=== PATIENT | female | born 2000 | race Caucasian/White ===

== ENCOUNTER 2024-09-25 11:01 | Emergency (ER) | payer OTHER, SELFPAY ==
--- NOTE | ~2024-09-25 | XR_ITS ---
CHEST RADIOGRAPH, PA AND LATERAL CLINICAL HISTORY: cp . COMPARISON: None available TECHNIQUE: PA and lateral views of the chest. FINDINGS The cardiomediastinal silhouette is unremarkable. The lungs are clear. Visualized osseous structures and soft tissues are unremarkable. IMPRESSION: No focal infiltrate or effusion. Reviewed, dictated and finalized at location A.
--- OUTSIDE RECORDS SUMMARY | 2024-09-25 11:04 | XMS_ITS | Encounter Summary ---
Author Organization [facility] Address [address] [place] [address] Encounters * Online digital evaluation and management service, for an established patient, for up to 7 days cumulative time during the 7 days, 11-20 minutes with Delia Calderón at [facility] on [id number] with dysuria, urgency and blood in urine x 1 day, treated for UTI with Macrobid We evaluated Zoe Knott for UTI Treatment [Female] during this period from 2024-03-18 to 2024-03-25.A log history of our dialog is attached below. PHR was confirmed per below. 1. Other specified bacterial agents as the cause of diseases classified elsewhere (B96.89) 2. Urinary Tract Infection (N39.0) nitrofurantoin monohydrate/macrocrystals 100 mg capsule ACUTE CARE PLAN SOAP NOTE SUBJECTIVE: Patient presenting with dysuria, urgency and blood in urine x 1 day OBJECTIVE: Discussed symptoms with patient on the phone consistent with Urinary Tract Infection I have reviewed and updated the problem and medication list and assessed the patient's pertinent positives and negatives as outlined in the intake titled UTI on 03/18/24 ASSESSMENT & PLAN: Clinical picture indicative of this diagnosis: Urinary Tract Infection Plan: 1. Start Macrobid 100 mg BID for 5 days 2. Increase fluid intake Follow-up interval and reason/type: 6 days Written by Delia Calderón on 2024-03-18
--- OUTSIDE RECORDS SUMMARY | 2024-09-25 11:04 | XMS_ITS | Clinical Summary ---
Author Organization [facility] Address [facility] [place] [address] Care Team Providers Care Vehicle Operator Technician Name Role Phone Elisa Ferrer MD Primary Care Provide r Allergies No known active allergies Medications acetaminophen (TYLENOL) 325 mg tablet Take 2 tablets (650 mg total) by mouth every 6 (six) hours as needed for pain 0 Active Additional Information Patient not taking.Reported on 01/12/2020 ibuprofen (ADVIL,MOTRIN) 600 mg tablet Take 1 tablet (600 mg total) by mouth every 6 (six) hours as needed for pain 0 Active etonogestreL (Nexplanon) 68 mg implant Inject 68 mg under the skin as directed Active Active Problems Problem Noted Date Diagnosed Date 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 CT abdomen in ED showed normal appendix and ovaries, which rules out appendicitis and ovarian pathologies. 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 Intraperitoneal fat infarct is typically a self-limiting condition, which is managed conservatively. CT also reported narrowing of the celiac artery, which can also present with abdominal pain, though pain is typically post-prandial which is not consistent with pt's presentation. Abdominal pain may also be a symptom of COVID-19 though less than 10% of COVID patients develop abdominal pain. We will optimize pain management and continue to monitor Zoe's symptoms. - Scheduled Tylenol q6h - Scheduled Toradol q6h - For breakthrough pain, morphine 2 mg q4h PRN COVID-19 virus infection 12/02/2019 Assessment & Plan (12/02/2019 10:05 PM CDT): Patient is COVID-19 positive. Currently symptoms include loss of taste and smell and some dizziness. Will continue to monitor for any additional symptoms and take appropriate isolation precautions. - COVID-19 precautions Medical History Medical History Date Comments PCOS (polycystic ovarian syndrome) Family History Medical History Relation Name Comments Hypertension Father Family history of hypertension - (Added by TW Conv) Hypertension Mother Diabetes type II Other Family hist ory of type 2 diabetes mellitus - Relation: Aunt (Added by TW Conv) Relation Name Status Comments Father Mother Other Social History Tobacco Use Types Packs/Day Years Used Date Smoking Tobacco: Never Personal Safety Answer Date Recorded Getting School Help Needed Not on file 07/13 Comments No Sex and Gender Information Value Date Recorded Sex Assigned at Not on file 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 Gender Identity Not on file Sexual Orientation Not on file Obstetrics History Last Filed Vital Signs Vital Sign Reading Time Taken Comments Blood Pressure 96/61 01/12/2020 9:21 AM CDT Pulse 73 01/12/2020 9:21 AM CDT Temperature 36.9 C (98.5 F) 01/12/2020 9:21 AM CDT Respiratory Rate 20 12/04/2019 8:30 AM CDT Oxygen Saturation 99% 12/04/2019 8:30 AM CDT Inhaled Oxygen Concentration - - Weight 100.6 kg (221 lb 12.8 oz) 01/12/2020 9:21 AM CDT Height 157.1 cm (5' 1.85) 01/12/2020 9:21 AM CD T Body Mass Index 40.76 01/12/2020 9:21 AM CDT Plan of Treatment Health Maintenance Due Date Last Done Comments Cervical Cancer Screening 2002 Depression Screening 2002 Hepatitis C Screening 2002 Meningococcal B Vaccine (1 o f 2 - Standard) 2018 Regular Well Visit/Exam 18-64 01/22/2020 DTaP/Tdap/Td Vaccine (7 - Td or Tdap) 12/03/2023 12/02/2013, 09/27/2007, 09/02/2003, Additional history exists Influenza Vaccine (Season Ended) 2024 Hepatitis B Screening Completed 03/23/2003 , 2002, 2002, Additional history exists Pneumococcal vaccine <65 Completed 004, 2002, 2002 Varicella Vaccines Completed 09/27/2007, 03/23/2003 HPV Vaccines Completed 11/13/2017, 12/22/2016 Insurance [facility] CHO[facility] PLUS [facility] CHO[facility] PL[facility] Advance Directives For more information, please contact: [phone] * Full Code (Latest Code Status on File) Date Activated Date Inactivated Comments 12/02/2019 9:05 PM 12/04/2019 5:47 PM Care Teams Vehicle Operator Technician Relationship Specialty Start Date End Date Elisa Ferrer MD [address] [facility] [facility] [place] [address] PCP - General Family Medicine 12/04/19
--- OUTSIDE RECORDS SUMMARY | 2024-09-25 11:04 | XMS_ITS | Referral Summary ---
Author Organization [facility] Address [facility] [place] [address] Care Team Providers Care Swine Genetics Researcher Name Role Phone Elisa Ferrer MD Primary [...] take appropriate isolation precautions. 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 Gender Identity Not on file Sexual Orientation Not on file Last Filed Vital Signs Vital Sign Reading [...] 01/12/2020 9:21 AM CDT Plan of Treatment Not on file Insurance [facility] [place]ICE [place] [address] [place] [address] [place] [address] [place] [address] CHOICE PLUS Advance Directives For more information, please contact: [phone] * Full Code (Latest Code Status on File) Date Activated Date Inactivated Comments 12/02/2019 9:05 PM 12/04/2019 5:47 PM Care Teams Swine Genetics Researcher Relationship Specialty Start Date End Date Elisa Ferrer MD [address] [facility] [place] [address] PCP - General Family Medicine 12/04/19
--- OUTSIDE RECORDS SUMMARY | 2024-09-25 11:04 | XMS_ITS | Continuity of Care Document ---
Author Name Paxton Yepez Address [address] [place] [address] Organization Unknown Address [address] [place] [address] Medications No known medications Problems No known problems
--- OUTSIDE RECORDS SUMMARY | 2024-09-25 11:04 | XMS_ITS | Encounter Summary ---
Author Organization [facility] Address [address] [place] [address] Encounters * Established patient, Video / office, 20-29 minutes with Sho Hunter at [facility] on [id number] year old female evaluated and treated for urinary tract infection. Macrobid prescribed We evaluated Zoe Knott for UTI Treatment [Female] during this period from 2024-07-10 to 2024-07-17.A log history of our dialog is attached below. PHR was confirmed per below. 1. Urinary Tract Infection, site unspecified (N39.0) nitrofurantoin monohydrate/macrocrystals 100 mg capsule ACUTE CARE PLAN SOAP NOTE Phone Call Date 07/10/2024 Time 9:50am EST Duration: 5 minutes Phone Number Called:[phone] SUBJECTIVE: Patient presenting with dysuria, frequency, urgency and hesitancy for the past 1-3 days. Last treated for UTI 02/2024 with macrobid and patient reports good response with antibiotics She denies fever, pelvic pain, nausea/vomiting, vaginal symptoms and known . She is currently sexually active but denies new partner OBJECTIVE: n/a I have reviewed and updated the problem and medication list and assessed the patient's pertinent positives and negatives as outlined in the intake titled UTI treatment on 07/10/2024. ASSESSMENT & PLAN: Clinical picture indicative of this diagnosis: Urinary Tract infection Plan: 1. Macrobid 100mg BID for 5 days 2. Supportive care reviewed F/U Acute Illness Resolution & Closure set for 6 days Written by Sho Hunter on 2024-07-10
--- NOTE | 2024-09-25 11:05 | ECG_ITS ---
Test Date: 2024-09-25 11:14:04 Measurements Intervals [place] Rate: 111 P: 15 [place]: 164 QRS: 24 QRSD: 78 T: -5 QT: 290 QTc: 394 Interpretive Statements SINUS TACHYCARDIA LOW QRS VOLTAGE IN PRECORDIAL LEADS [QRS DEFLECTION < 1.0 mV IN CHEST LEADS] ABNORMAL RHYTHM ECG No previous ECG available for comparison Electronically Signed On 09-26-2024 11:02:53 CDT by Emily Alvarado M.D.
[2024-09-25] MEDS: ASPIRIN 81 MG CHEWABLE TABLET 324 MG PO (11:11)
[2024-09-25 11:12] VITALS: PULSE 111
[2024-09-25 11:16] VITALS: BP 130/61; PULSE 103; RESP 21; O2SAT 100
[2024-09-25 11:22] LABS: Basophils Percent Auto 0.4 % (0.2-1.2); Eosinophils Absolute Auto 0.1 K/mm3 (0-0.3); Eosinophils Percent Auto 0.6 % (0-4.4); Hematocrit 42.7 % (37.0-47.0); Hemoglobin 13.6 g/dL (12.0-15.0); Immature Granulocyte Absolute 0.03 K/mm3 (0.00-0.031); Immature Granulocyte Percent A 0.4 % (0-0.5); Lymphocytes Absolute Auto 1.68 K/mm3 (0.9-3.2); Lymphocytes Percent Auto 20.7 % (18.3-44.2); Mean Corpuscular HGB Conc 31.9 g/dl (32-36); Mean Corpuscular Hemoglobin 29.4 pg (26-34); Mean Corpuscular Volume 92.2 fl (80-100); Mean Platelet Volume 10.1 fl (7.4-10.4); Monocytes Absolute Auto 0.4 K/mm3 (0.1-0.6); Monocytes Percent Auto 4.7 % (2.6-8.5); Neutrophils Absolute Auto 5.9 K/mm3 (1.3-6.7); Neutrophils Percent Auto 73.2 % (45.5-73.1); Platelet Count Result 343 k/mm3 (150-375); Red Blood Count 4.63 M/mm3 (4.2-5.4); White Blood Count 8.1 K/mm3 (4.5-10.0)
[2024-09-25 11:29] LABS: Alanine Aminotransferase 34 U/L (6-35); Albumin Level 4.2 g/dL (3.5-5.1); Alkaline Phosphatase 76 U/L (38-126); Anion Gap 6 mmol/L (4-12); Aspartate Amino Transferase 35 U/L (14-36); Bilirubin,Total 0.5 mg/dL (0.2-1.3); Blood Urea Nitrogen 11 mg/dL (7-17); Calcium 9.2 mg/dL (8.4-10.2); Carbon Dioxide 28 mmol/L (22-30); Chloride 103 mmol/L (98-107); Estimated CRCL calculation 117 ml/min; Estimated Glomerular Filt Rate > 60; Glucose 98 mg/dL (65-110); Lipase 65 U/L (23-300); Potassium 3.9 mmol/L (3.4-5.0); Sodium 137 mmol/L (137-145)
[2024-09-25 11:32] LABS: Partial Thromboplastin Time 28.1 Seconds (22.3-36.8); Prothrombin Time 13.2 Seconds (11.1-14.7)
[2024-09-25 11:41] LABS: Troponin I < 0.012 ng/mL (0.000-0.034)
[2024-09-25] MEDS: BELLADONNA ALK/PHENOB ELIX 10 ML, MAG HYDROX/ALUMINUM HYD/SIMETH 30 ML, LIDOCAINE 2% VI... PO (11:53)
[2024-09-25] MEDS: KETOROLAC 15 MG/ML VIAL (*BKC) IV PUSH (11:53)
--- OUTSIDE RECORDS SUMMARY | 2024-09-25 11:54 | XMS_ITS | Clinical Summary ---
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 Gender Identity Not on file Sexual Orientation [...] 03/23/2003 HPV Vaccines Completed 11/13/2017, 12/22/2016 Insurance [facility] Address: [place] [address] [facility] PLUS [facility]PP[facility] Address: [address] [address] [place] [address] [facility] Address: [address] [address] [place] [address] Advance Directives For more information, please contact: [phone] * Full Code (Latest Code Status on File) Date Activated Date Inactivated Comments 12/02/2019 9:05 PM 12/04/2019 5:47 PM Care Teams Vamp Liner Relationship Specialty Start Date End Date Elisa Ferrer MD [address] [facility] [facility] [place] [address] PCP - General Family Medicine 12/04/19
--- OUTSIDE RECORDS SUMMARY | 2024-09-25 11:54 | XMS_ITS | Referral Summary ---
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 Gender Identity Not on file Sexual Orientation [...] Plan of Treatment Not on file Insurance [facility] CHOICE PLUS [facility] H[facility]/PPO Address: [address] [place] [address] [place] [address] CHOICE PLUS [facility] H[facility]/PPO Address: [address] [place] [address] [place] [address] CHOICE PLUS [facility] H[facility]/PPO Address: [address] [place] [address] Advance Directives For more information, please contact: [phone] * Full Code (Latest Code Status on File) Date Activated Date Inactivated Comments 12/02/2019 9:05 PM 12/04/2019 5:47 PM Care Teams Trimming Machine Set Up Operator Relationship Specialty Start Date End Date Elisa Ferrer MD [address] [facility] [place] [address] PCP - General Family Medicine 12/04/19
[2024-09-25 12:15] VITALS: BP 104/60; PULSE 75; RESP 20; O2SAT 99
--- NOTE | 2024-09-25 12:17 | ED_ITS ---
HPI - General Adult General Chief complaint: Chest Pain Stated complaint: chest pain Time Seen by Provider: 09/25/24 11:33 History of Present Illness HPI narrative: patient 22-year-old female presents emergency department with chief complaint of chest pain. The patient reports that she has been having pain in the epigastric region up into her chest for the last 3 days the patient states that the pain is pressure but also has a sharp type feeling reports worse with movement patient states she is on phentermine reports pain is worse with movement and worse with palpation. Related Data Allergies Allergy/AdvReac Type Severity Reaction Status Date / Time No Known Allergies Allergy Verified 09/25/24 11:04 Review of Systems 2 Review of Systems: A 10 system review of systems was completed on the patient and is negative except for what is stated in the HPI. Nursing and ancillary documentation was reviewed. Exam 2 Narrative: GENERAL: Well-appearing, well-nourished, and in no acute distress. HEAD: Normocephalic, atraumatic. EYES: PERRLA and EOMI. ENT: Nares clear, no rhinorrhea or epistaxis. Mucous membranes moist. NECK: Supple. CHEST: Clear to auscultation. No respiratory distress.Chest wall is tender to palpation and reproduces the pain HEART: Regular rate and rhythm. No murmur heard. Normal peripheral pulses. ABDOMEN: Soft, nontender, nondistended, normal active bowel sounds. EXTREMITIES: Normal range of motion. No edema. SKIN: Warm, dry, no rash. NEURO: No focal deficits. Alert and oriented x3. PSYCH: Normal mood and affect. Course Vital Signs Vital signs: Vital Signs Oxygen Delivery Room Air 09/25/24 11:08 Pulse Rate 75 09/25/24 12:15 Respiratory Rate 09/25/24 12:15 Blood Pressure 104/60 09/25/24 12:15 Pulse Oximetry 99 09/25/24 12:15 Oxygen Delivery Room Air 09/25/24 11:08 Medical Decision Making [facility] Narrative Medical decision making narrative: differential diagnosis includes chest wall pain, ACS, musculoskeletal chest pain, pneumonia, pneumothorax EKG showed no acute ischemic changes laboratory studies were obtained the patient which were within normal limits troponin was negative Vital Signs Vital Signs: Vital Signs Oxygen Delivery Room Air 09/25/24 11:08 Pulse Rate 75 09/25/24 12:15 Respiratory Rate 20 09/25/24 12:15 Blood Pressure 104/60 09/25/24 12:15 Pulse Oximetry 99 09/25/24 12:15 Oxygen Delivery Room Air 09/25/24 11:08 Lab Data 09/25/24 11:12 09/25/24 11:12 Labs: Lab Results 09/25/24 Range/Units 11:12 WBC 8.1 (4.5-10.0) K/mm3 RBC 4.63 (4.2-5.4) M/mm3 Hgb 13.6 (12.0-15.0) g/dL Hct 42.7 (37.0-47.0) % MCV 92.2 (80-100) fl MCH 29.4 (26-34) pg MCHC 31.9 L (32-36) g/dl RDW 12.0 (11.5-14.5) % Plt Count 343 (150-375) k/mm3 MPV 10.1 (7.4-10.4) fl Immature Gran % (Auto) 0.4 (0-0.5) % Neut % (Auto) 73.2 H (45.5-73.1) % Lymph % (Auto) 20.7 (18.3-44.2) % Beadle % (Auto) 4.7 (2.6-8.5) % Eos % (Auto) 0.6 (0-4.4) % Baso % (Auto) 0.4 (0.2-1.2) % Lymph # (Auto) 1.68 (0.9-3.2) K/mm3 Beadle # (Auto) 0.4 (0.1-0.6) K/mm3 Eos # (Auto) 0.1 (0-0.3) K/mm3 Baso # (Auto) 0.0 (0.0-0.1) K/mm3 Abs Immat Gran (auto) 0.03 (0.00-0.031) K/mm3 Absolute Neuts (auto) 5.9 (1.3-6.7) K/mm3 Absolute Nucleated RBC 0.000 (0.0-0.012) K/mm3 Nucleated RBC % 0.0 (0.0-0.2) % PT 13.2 (11.1-14.7) Seconds INR 1.0 APTT 28.1 (22.3-36.8) Seconds Sodium 137 (137-145) mmol/L Potassium 3.9 (3.4-5.0) mmol/L Chloride 103 (98-107) mmol/L Carbon Dioxide 28 (22-30) mmol/L Anion Gap 6 (4-12) mmol/L BUN 11 (7-17) mg/dL Creatinine 0.83 (0.7-1.0) mg/dL Estim Creat Clear Calc 117 ml/min Estimated GFR > 60 (59 - ) Glucose 98 (65-110) mg/dL Calcium 9.2 (8.4-10.2) mg/dL Total Bilirubin 0.5 (0.2-1.3) mg/dL AST 35 (14-36) U/L ALT 34 (6-35) U/L Alkaline Phosphatase 76 (38-126) U/L Troponin I < 0.012 (0.000-0.034) ng/mL Total Protein 8.0 (6.3-8.2) g/dL Albumin 4.2 (3.5-5.1) g/dL Lipase 65 (23-300) U/L Discharge Plan Discharge Clinical Impression: Chest pain, Costalchondritis Patient Disposition: Home Condition: Stable Instructions: Antibiotic Form, Chest Pain (ED), Chest Wall Pain (ED) Patient Language: Kenyan Prescriptions: New ibuprofen 800 mg tablet 800 mg PO TID PRN (Reason: pain) Qty: 30 0RF Follow-up/Referrals: PHYSICIAN,HOSPITAL SECURITY OFFICER [Primary Care Provider] - Jose Maria Syed MD [Physician] - Stand Alone Forms: Work/School Release IP Time of Disposition: 12:45 Quality HEART score for chest pain patients History: slightly suspicious ECG: normal Age: < or = to 45 years Risk factors: no risk factors known Troponin: < or = to 1x normal limit Heart score: 0
[2024-09-25 12:21] VITALS: TEMP 36.9
== END 2024-09-25 12:52 | disposition home or self-care (01) ==
PROVIDERS: Emergency Provider Emergency Medicine
DX: M94.0 Chondrocostal junction syndrome [Tietze] (principal); R00.0 Tachycardia, unspecified
CPT/HCPCS: 36415; 71046; 80053; 83690; 84484; 85025; 85610; 85730; 93005; 96374; 99284; A9270; J1885